=== PATIENT | male | born 1970 | race Caucasian/White ===

== ENCOUNTER 2016-05-27 08:14 | Emergency (ER) | payer OTHER ==
[~2016-05-27] VITALS: Ht 180.3 cm; Wt 77.1 kg
[~2016-05-27 08:14] MED LIST: AUGMENTIN 875875 MG PO; CLEOCIN HCL300 MG PO; CYCLOBENZAPRINE10 M3 PO; IBU800 MG PO; MOBIC15 MG PO; PERCOCET 325 MG1 TA2 PO; PERCOCET 325 MG1 TAB PO; PERCOCET 5-3251 EACH PO; PREDNISONE 10MG10 M1 PO
[2016-05-27 08:20] VITALS: BP 142/85
--- NOTE | 2016-05-27 08:27 | ED NECK/BACK PAIN COMPLAINT ---
History of Present Illness General Chief Complaint: Low Back Pain/Injury Stated Complaint: LBP CHRONIC/MED REQUEST Source: patient, old records Exam Limitations: no limitations Vital Signs & Intake/Output Vital Signs & Intake/Output Vital Signs Date Time Temp Pulse Resp B/P Pulse O2 O2 Flow FiO2 Ox Delivery Rate 05/27 0820 97.2 85 20 142/85 97 Room Air Allergies Coded Allergies: NO KNOWN ALLERGIES (10/15/15) Reconcile Medications Cyclobenzaprine HCl 10 MG TABLET 1 TAB PO TID PRN muscle relaxant Ibuprofen (Ibu) 800 MG TAB 1 TAB PO BID PAIN (Reported) Ibuprofen 800 MG TABLET 1 TAB PO Q8H PRN pain Lisinopril 10 MG TABLET 1 TAB PO DAILY HEART (Reported) Oxycodone HCl 10 MG TABLET 1 TAB PO BID PRN pain OXYCODONE HCL/ACETAMINOPHEN (Percocet 5-325 MG Tablet) 325 MG/5 MG TAB 1-2 TAB PO Q4-6 PRN PRN PAIN Triage Note: C/O LOW BACK PAIN (CHRONIC) FOR "WEARS". STATES PAIN IS DUE TO LOWER DISC PROBLEMS AND BROKEN "TAILBONE". STATES HIS MD (DR. LEMONS) IS NO LONG ABLE TO PRESCRIBE HIS MEDS (OXYCODONE 10 MG BID, FLEXERIL 10 MG BID, MOTRIN 800 MG HS, AND HTN MEDICATION). RAN OUT OF MEDS YESTERDAY. Triage Nurses Notes Reviewed? yes HPI: Patient is a 45-year-old male presents complaining of low back pain. Patient reports that back pain has been for several years after he "broke his back". Pain worsening over the past 2-3 days with radiation down his left lower extremity. Pain feels consistent with previous chronic back pain. Patient had been receiving prescriptions for Percocet, Flexeril, ibuprofen from his primary doctor, called his doctor yesterday as he ran out of his medications yesterday and was told that his primary doctor could no longer prescribe his medications. Patient is being referred to pain management but reports that it could be several weeks before he is able to get into pain management. Pain is a sharp/ burning pain is currently severe. Patient denies numbness in his rectum, incontinence, abdominal pain, recent fall. Past History Travel History Traveled to [place] past 21 day No Medical History Any Pertinent Medical History? 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 No Review of Systems Review of Systems Constitutional: Denies: chills, fever. Eyes: Reports: no symptoms. Ears, Nose, Throat, Mouth: Reports: no symptoms. Respiratory: Denies: cough, short of breath. Cardiovascular: Denies: chest pain. Gastrointestinal/Abdominal: Denies: abdominal pain. Musculoskeletal: Reports: see HPI. Skin: Reports: no symptoms. Neurological/Psychological: Reports: paresthesia (left thigh). Physical Exam Physical Exam General Appearance: well developed/nourished, alert, awake Head: atraumatic, normal appearance Eyes: Bilateral: normal appearance, PERRL, EOMI. Ears, Nose, Throat, Mouth: hearing grossly normal Neck: normal inspection, supple, full range of motion Respiratory: no respiratory distress Gastrointestinal: soft, non-tender Back: normal inspection, normal range of motion, mild tenderness midline lumbar and right paraspinal Extremities: non-tender, normal range of motion Straight Leg Raising: Right: Pain at ____ degrees. Left: Pain at ____ degrees. DTR: Patellar: 2: L4 Right, L4 Left. Neurologic/Psych: no motor/sensory deficits, awake, alert, oriented x 3, mild antalgic gait Skin: intact, normal color, warm/dry Progress Differential Diagnosis: AAA, aortic dissection, cauda equina syn, herniated disc , myofascial strain, sciatica, spinal cord inj, thoracic outlet syn, T/L spine injury, ureterolithiasis Plan of Care: Pain is consistent with patient's chronic back pain. No acute red flags on exam or by history. Labs and imaging deferred. Reviewed patient's history in [facility] Departure Departure Time of Disposition: 833 Disposition: HOME OR SELF CARE Condition: Stable Clinical Impression Primary Impression: Acute exacerbation of chronic low back pain Referrals: GIULIANO HOLMAN,CHAO (PCP/Family) Additional Instructions: Follow-up with your primary doctor and pain management. Return to the emergency department if numbness in your rectum, incontinence, increasing weakness, increasing numbness. Departure Forms: Customer Survey General Discharge Information Prescriptions: Current Visit Scripts Oxycodone HCl 1 TAB PO BID PRN pain #15 TAB Cyclobenzaprine HCl 1 TAB PO TID PRN muscle relaxant #30 TAB Ibuprofen 1 TAB PO Q8H PRN pain #30 TAB
[2016-05-27] MEDS ORDERED: LISINOPRIL10 M1 PO (08:32)
[2016-05-27] MEDS ORDERED: CYCLOBENZAPRINE10 M1 PO (08:37)
[2016-05-27] MEDS ORDERED: IBUPROFEN800 M1 PO (08:37)
[2016-05-27] MEDS ORDERED: OXYCODONE HCL10 M2 PO (08:37)
== END 2016-05-27 08:57 ==
LOC: ERH 08:14
DX: G89.29 Other chronic pain (principal); M54.5 Low back pain

== ENCOUNTER 2016-06-04 09:23 | Emergency (ER) | payer OTHER ==
[~2016-06-04] VITALS: Ht 180.3 cm; Wt 73.9 kg
[~2016-06-04 09:23] MED LIST changes: +CYCLOBENZAPRINE10 M1 PO; +IBUPROFEN800 M1 PO; +LISINOPRIL10 M1 PO; +OXYCODONE HCL10 M2 PO
[2016-06-04 09:31] VITALS: BP 155/70
[2016-06-04] MEDS ORDERED: OXYCODONE HCL10 M2 PO (09:43)
--- NOTE | 2016-06-04 09:44 | ED NECK/BACK PAIN COMPLAINT ---
History of Present Illness General Chief Complaint: Low Back Pain/Injury Stated Complaint: LOW BACK PAIN Source: patient Exam Limitations: no limitations Vital Signs & Intake/Output Vital Signs & Intake/Output Vital Signs Date Time Temp Pulse Resp B/P Pulse O2 O2 Flow FiO2 Ox Delivery Rate 06/04 0931 97.5 79 20 155/70 98 Room Air Allergies Coded Allergies: NO KNOWN ALLERGIES (10/15/15) Reconcile Medications Ibuprofen (Ibu) 800 MG TAB 1 TAB PO BID PAIN (Reported) Lisinopril 10 MG TABLET 1 TAB PO DAILY HEART (Reported) Oxycodone HCl 10 MG TABLET 1 TAB PO BID pain Triage Note: PT TO ED C/O CHRONIC LOWER BACK PAIN. HAS AN APPOINTMENT WITH PAIN MANAGEMENT ON SATURDAY 06/10. NEEDS MEDS TO HOLD HIM OVER UNTIL HE CAN BE SEEN. PT SEEN IN ED FOR SAME LAST WEEK. Triage Nurses Notes Reviewed? yes Onset: Abrupt Duration: day(s):, constant, continues in ED Timing: recent history Quality/Severity: moderate, severe Location: lumbar spine Radiation: upper legs, lower legs HPI: 45-year-old male comes into emergency room for further evaluation of low back pain. Patient has had chronic low back pain for many years. Patient reports that his doctor recently stopped prescribing him oxycodone. He is due to get in with pain management next Monday. Patient is looking for some pain medication to get him through till next week. Denies any new symptoms. Sharp pain in the lower back. Radiates down both legs. Patient reports he has a history of degenerative disc disease and arthritis and herniated disc. (MARIBEL MOYA) Past History Travel History Traveled to [place] past 21 day No Medical History Any Pertinent Medical History? 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 No (MARIBEL MOYA) Review of Systems Review of Systems Constitutional: Reports: no symptoms. Eyes: Reports: no symptoms. Ears, Nose, Throat, Mouth: Reports: no symptoms. Respiratory: Reports: no symptoms. Cardiovascular: Reports: no symptoms. Gastrointestinal/Abdominal: Reports: no symptoms. Musculoskeletal: Reports: see HPI. Skin: Reports: no symptoms. Neurological/Psychological: Reports: no symptoms. All Other Systems: Reviewed and Negative (MARIBEL MOYA) Physical Exam Physical Exam General Appearance: well developed/nourished, mild distress Head: atraumatic Eyes: Bilateral: normal appearance. Ears, Nose, Throat, Mouth: hearing grossly normal, moist mucous membrane Neck: normal inspection Respiratory: no respiratory distress Back: normal inspection, paraspinal tenderness Extremities: normal range of motion Motor: Deficit L4 Right: No Deficit L4 Left: No Deficit L5 Right: No Deficit L5 Left: No Deficit S1 Right: No Deficit S1 Right: No Neurologic/Psych: awake, alert, oriented x 3, normal mood/affect Skin: intact, normal color, warm/dry (MARIBEL MOYA) Progress Differential Diagnosis: carotid dissection, cauda equina syn, herniated disc, myofascial strain, pyelo/UTI, sciatica, spinal cord inj, thoracic outlet syn, ureterolithiasis Plan of Care: 06/04/2016 11:51:58 AM Chronic pain for the patient. Patient needs to be medicated. Follow-up with primary care doctor. Return if any concerns worsening symptoms. (MARIBEL MOYA) Departure Departure Disposition: HOME OR SELF CARE Condition: Stable Clinical Impression Primary Impression: Acute exacerbation of chronic low back pain Referrals: CHAO NOBLES MD (PCP/Family) Additional Instructions: Take oxycodone as prescribed. Follow-up with your name impingement doctor. Return if any other concerns worsening symptoms. Please go over all results of today's visit with your primary care doctor. Contact your primary care doctor to let them know you were here in the emergency room. There may be nonspecific findings which may not be related to your visit today here in the emergency room but may require further evaluation and chronic monitoring by your primary care doctor. If you had a laceration today the chance of foreign body always remains. You should follow-up with your primary care doctor for recheck in 3-5 days for a wound check. If you had an x-ray done there is a chance that a fracture could have been missed on initial read and you should follow-up with your primary care doctor for repeat x-rays if symptoms persist. If your blood pressure was elevated here in the emergency room please have rechecked by her primary care doctor within the next 48 hours by your primary care doctor. If you were prescribed a narcotic here in the emergency room or any type of controlled substances you're not allowed to drive while taking this medication or operate any type of heavy machinery. Narcotics can make you feel lightheaded dizziness nausea and can cause constipation. You may need to cotton picker a stool softener. Thank you for choosing [facility] emergency room. Please return to the emergency room immediately if you have any other concerns worsening of symptoms. Departure Forms: Customer Survey General Discharge Information Prescriptions: Current Visit Scripts Oxycodone HCl 1 TAB PO BID #15 TAB (MARIBEL MOYA) PA/EQUIPMENT INSTALLATION PROFESSIONAL Co-Sign Statement Statement: ED Attending supervision documentation- [] I saw and evaluated the patient. I have also reviewed all the pertinent lab results and diagnostic results. I agree with the findings and the plan of care as documented in the PA's/EQUIPMENT INSTALLATION PROFESSIONAL's documentation. [X] I have reviewed the ED Record and agree with the PA's/EQUIPMENT INSTALLATION PROFESSIONAL's documentation. [] Additions or exceptions (if any) to the PAs/EQUIPMENT INSTALLATION PROFESSIONAL's note and plan are summarized below: [] (ERIKA HOLMAN,JOSE)
== END 2016-06-04 10:00 ==
LOC: ERH 09:23
DX: M54.5 Low back pain (principal)

== ENCOUNTER 2017-11-01 22:50 | Emergency (ER) | payer OTHER ==
[~2017-11-01] VITALS: Ht 182.9 cm; Wt 63.5 kg
[~2017-11-01 22:50] MED LIST changes: +HYDROCODON-ACE1 EAC2 PO; +MOBIC15 M1 PO; +PREDNISONE20 M1 PO; +SKELAXIN800 M1 PO; +TESSALON PERLE100 M1 PO
--- NOTE | 2017-11-01 23:01 | ED CRITICAL CARE ---
History of Present Illness General Chief Complaint: Cardiopulmonary Resuscitation Stated Complaint: CPR Source: EMS Exam Limitations: clinical condition Vital Signs & Intake/Output Vital Signs & Intake/Output Vital Signs Date Time Temp Pulse Resp B/P B/P Pulse O2 O2 Flow FiO2 Mean Ox Delivery Rate 11/01 2340 0 00/11/01 2338 Ventilator ED Intake and Output 11/02 0000 11/01 1200 Intake Total Output Total Balance Patient 140 lb Weight Weight Estimated Measurement Method Allergies Coded Allergies: NO KNOWN ALLERGIES (10/15/15) Reconcile Medications Benzonatate (Tessalon Perle) 100 MG CAPSULE 1 CAP PO TID COUGH Cyclobenzaprine HCl 10 MG TABLET 1 TAB PO TID SPASMS Ibuprofen 800 MG TABLET 1 TAB PO TID pain Lisinopril 10 MG TABLET 1 TAB PO DAILY HEART (Reported) Meloxicam (Mobic) 15 MG TABLET 1 TAB PO DAILY PRN PAIN Metaxalone (Skelaxin) 800 MG TABLET 1 TAB PO TID PRN MUSCLE RELAXOR Triage Nurses Notes Reviewed? yes Onset: unknown Duration: minute(s): Timing: single episode today Injury Environment: home Severity: severe Associated Symptoms: asystolic, unresponsive HPI: 46 yo gentleman presents in asystolic arrest, intubated. Per the medics, they were called to a home by a woman who had come home to find two men unresponsive at home. The first man was minimally responsive. The second, this patient, was completely unresponsive. 911 called immediately. The medics arrived and found him asystolic, apneic. ACLS begun. He was intubated in the field. Epix 4, bicarb x1 given in the field without response. Time in the field, approx 50 minutes. Past History Medical History Any Pertinent Medical History? see below for history Cardiovascular: hypertension Musculoskeletal: back pain Surgical History Surgical History: none Family History Hx Contributory? No Review of Systems Review of Systems Constitutional: Reports: no symptoms. Eyes: Reports: no symptoms. Ears, Nose, Throat, Mouth: Reports: no symptoms. Respiratory: Reports: no symptoms. Cardiovascular: Reports: no symptoms. Gastrointestinal/Abdominal: Reports: no symptoms. Genitourinary: Reports: no symptoms. Musculoskeletal: Reports: no symptoms. Skin: Reports: no symptoms. Neurological/Psychological: Reports: no symptoms. All Other Systems: Reviewed and Negative Comments ROS limited by patient condition and report from medics Physical Exam Physical Exam General Appearance: disheveled Head: atraumatic, perioral cyanosis Eyes: Bilateral: other (fixed,dilated,no cornela rflx). Ears, Nose, Throat, Mouth: dry mucosa Neck: normal inspection, supple Respiratory: symmetric breath sounds with BMV. no spontaneous breathing Cardiovascular: 2+ femoral pulses with chest compressions. No pulse without chest compressions Gastrointestinal: soft, mild distension. no bowel sounds Extremities: cool, cyanosis Neurologic/Psych: no spontaneous movement Skin: intact, mottled, pallor Core Measures ACS in differential dx? No CVA/TIA Diagnosis No Sepsis Present: No Sepsis Focused Exam Completed? No Progress Differential Diagnoses I considered the following diagnoses in my evaluation of the patient: overdose, heart attack vs other. Plan of Care: Orders Procedure Date/time Status URINE DRUG SCREEN FOR ER ONLY 11/01 2299 Complete Laboratory Tests 11/01/17 2343: Urine Opiates Screen 2822.00 H, Methadone Screen < 40, Barbiturate Screen < 60, Ur Phencyclidine Scrn < 6.00, Amphetamines Screen < 100, U Benzodiazepines Scrn > 800 H, Urine Cocaine Screen > 1000 H, Urine Cannabis Screen 51.80 H Initial ED EKG: none Rhythm Strip: asystole throughout ED stay Departure Departure Disposition: Condition: Stable Clinical Impression Primary Impression: Cardiac arrest Secondary Impressions: Polysubstance abuse Referrals: Patient Has No Primary Care Dr Departure Forms: General Discharge Information Critical Care Note Critical Care Note Critical Care Time: 30-74 min Comments: Pt arrived at 22:50 after 50 minutes of asystole in the field. Pt given narcan 2mg iv, epi x 1, bicarb x 1... no response. asystolic in two leads. time of 22:59
[2017-11-01 23:40] VITALS: BP 00/00
== END 2017-11-01 22:59 | disposition expired ==
LOC: ERH → EDBD 23:00 → ERH 11-02 04:02
DX: I46.9 Cardiac arrest, cause unspecified (principal); F19.10 Other psychoactive substance abuse, uncomplicated
CPT/HCPCS: 80307; 96374; 96375; 99291